=== PATIENT | male | born 1950 | race Caucasian/White ===

== ENCOUNTER → 2016-08-05 | Outpatient (CLI) | payer OTHER ==
[~2016-08-05] MED LIST: ASPCH81X PO; ASPEC81 PO; ATOR-24 PO; ATOR-26 PO; COEN100C7 PO; CYAN100020 PO; FENO54TA3 PO; GLC500 PO; LEVO75TA5 PO; LISI-725 PO; LISI20TA3 PO; METF500T5 PO
[2016-08-05 09:40] LABS: HEMATOCRIT 47.2 % (42-52); MEAN CELL VOLUME 93.7 fL (80-100); MEAN CORPUSCULAR HEMOGLOBIN 32.3 pg (25-34); MEAN CORPUSCULAR HGB CONC 34.5 g/dl (32-36); MEAN PLATELET VOLUME 9.9 fL (7.4-10.4); PLATELET COUNT 277 K/uL (130-400); RED BLOOD COUNT 5.04 M/uL (4.7-6.1); WHITE BLOOD COUNT 9.28 K/uL (4.8-10.8)
[2016-08-05 09:59] LABS: ALT/SGPT 38 U/L (12-78); BLOOD UREA NITROGEN 17 mg/dl (7-18); BUN/CREATININE RATIO 19.4 (10-20); CARBON DIOXIDE 28 mmol/L (21-32); CHLORIDE 104 mmol/L (98-107); CHOLESTEROL 171 mg/dl (0-200); CREATININE 0.86 mg/dl (0.60-1.40); GLUCOSE 108 mg/dl (70-99); POTASSIUM 4.1 mmol/L (3.5-5.1); SODIUM 140 mmol/L (136-145); TRIGLYCERIDES 202 mg/dl (0-150); VERY LOW DENSITY LIPOPROT CALC 40 mg/dl
[2016-08-05 10:00] LABS: CALCIUM 9.4 mg/dl (8.5-10.1)
[2016-08-05 10:07] LABS: ESTIMATED AVERAGE GLUCOSE 128 mg/dl; HA1C FLAG Normal (Normal)
[2016-08-05 10:09] LABS: ALB/GLOB RATIO 0.9 (0.9-2); ALKALINE PHOSPHATASE 47 U/L (45-117); AST/SGOT 26 U/L (15-37); CHOLESTEROL/HDL RATIO 4.1; HDL CHOLESTEROL 42 mg/dl; LDL CHOLESTEROL CALCULATED 89 mg/dl
[2016-08-05 11:27] LABS: LYME DISEASE AB IGG NEG (NEG); LYME DISEASE AB IGM NEG (NEG)
--- NOTE | 2016-08-12 13:45 | CODING QUERY MEDICAL NECESSITY ---
CQSUPPORTING DIAGNOSIS NEEDED A supporting diagnosis is required for the test/procedure performed on this patient in order for us to be reimbursed by the patient's insurance. Please provide a supporting diagnosis for the following test/procedure listed below next to the test name along with your signature. *If there is no additional diagnosis for this patient that would support the following test/procedure please document that below next to the test/procedure. Test(s)/Procedure(s) that require a supporting diagnosis: DOS 08/05/16 VITAMIN B12 Provider Signature: Date: Thank you Mahi Dela Cruz [employer] Once completed, please kindly fax back to [phone] For questions please call [phone]
== END | disposition home or self-care (01) ==
LOC: C.LAB 06:34
PROVIDERS: ATTEND Family Medicine
DX: R73.09 Other abnormal glucose (principal)

== ENCOUNTER → 2016-11-25 | Day surgery (SDC) | payer OTHER ==
[2016-11-18 07:36] VITALS: Ht 170.2 cm; Wt 102.3 kg
[~2016-11-25] VITALS: Ht 170.2 cm; Wt 102.3 kg
[~2016-11-25] MED LIST changes: -ASPEC81 PO; -ATOR-26 PO; -GLC500 PO; +LIDOCAINE HCL 2% 2 ML VIAL (20MG/ML) ONE; -LISI20TA3 PO; +PROPOFOL IV EMULSION 10 MG/ML 20 ML VIAL IV ONE; +SODIUM CHLORIDE 0.9% 500ML 500 ML IV ONE
--- NOTE | 2016-11-25 11:52 | Endo History and Physical ---
History & Physical Date of Service: Nov 25, 2016. Chief Complaint: Rectal Bleeding Referring Physician: Dr Roberts History of Present Illness 66 yo CM who presents for colonoscopy secondary to Rectal bleeding. Past Surgical History Hx Cardiac Surgery: No Hx Internal Defibrillator: No Hx Pacemaker: No Hx Abdominal Surgery: Yes (RICKY) Hx of Implantable Prosthesis: No Hx Post-Op Nausea and Vomiting: No Hx Cancer Surgery: No Hx Thoracic Surgery: No Hx Orthopedic: Yes (RT SHOULDER SX, RT WRIST SX) Hx Urinary Tract Surgery: No Family History None Social History Smoking Status: Former Smoker Hx Substance Use: No Hx Alcohol Use: Yes (6 DRINKS A WEEK (BEER)) Allergies Coded Allergies: No Known Allergies (Verified , 11/18/16) Current Medications Reported Home Medications Medications Dose Route/Sig Max Daily Dose Days Date Category Dose Instructions Coq10 (Coenzyme Q10 (Ubidecarenone)) 100 Mg Cap 1 Cap PO QPM 11/18/16 Reported Vitamin B12 (Cyanocobalamin) 1,000 Mcg Tab 1 Tab PO QPM 11/18/16 Reported Lipitor (Atorvastatin Calcium) 40 Mg Tab 40 Mg PO QAM 11/18/16 Reported Lofibra (Fenofibrate) 54 Mg Tab 1 Tab PO QAM 11/18/16 Reported Zestril (Lisinopril) 20 Mg Tab 20 Mg PO QAM 11/18/16 Reported Levothyroxine Sodium 75 Mcg Tab 1 Tab PO QAM 90 11/18/16 Reported Aspirin Chewable (Aspirin) 81 Mg Chew 81 Mg PO QAM 11/18/16 Reported Glucophage Er (Metformin HCl) 500 Mg Tab 1 Dose PO BID 11/18/16 Reported 2 TABS IN AM 1 TAB IN PM Vital Signs Weight (Kilograms): 102.27 Height (Feet): 5 Height (Inches): 7 Date Time Temp Pulse Resp B/P (MAP) Pulse Ox O2 Delivery O2 Flow Rate FiO2 11/25/16 11:04 36.9 67 20 171/89 (116) 94 Room Air Physical Exam General Appearance: WD/WN, no apparent distress Respiratory/Chest: Auscultation: breath sounds normal Cardiovascular: Heart Auscultation: RRR Abdomen: Bowel Sounds: normal Inspection & Palpation: soft, non-distended, no tenderness, guarding & rebound Assessment and Plan Assessment: 66 yo CM who presents for colonoscopy secondary to Rectal bleeding. Plan: Proceed with colonoscopy.
--- NOTE | 2016-11-25 13:26 | Discharge Instructions ---
Endoscopy Patient Instructions Date / Procedure(s) Performed Nov 25, 2016. Colonoscopy Allergy Information Coded Allergies: No Known Allergies (Verified , 11/18/16) Discharge Date / Findings Nov 25, 2016. Diverticulosis Internal hemorrhoids Incomplete colonoscopy Medication Instructions Stopped Medication(s): ASA, Metformin OK to resume all medications today as prescribed Reported Home Medications Medications Dose Route/Sig Max Daily Dose Days Date Category Dose Instructions Coq10 (Coenzyme Q10 (Ubidecarenone)) 100 Mg Cap 1 Cap PO QPM 11/18/16 Reported Vitamin B12 (Cyanocobalamin) 1,000 Mcg Tab 1 Tab PO QPM 11/18/16 Reported Lipitor (Atorvastatin Calcium) 40 Mg Tab 40 Mg PO QAM 11/18/16 Reported Lofibra (Fenofibrate) 54 Mg Tab 1 Tab PO QAM 11/18/16 Reported Zestril (Lisinopril) 20 Mg Tab 20 Mg PO QAM 11/18/16 Reported Levothyroxine Sodium 75 Mcg Tab 1 Tab PO QAM 90 11/18/16 Reported Aspirin Chewable (Aspirin) 81 Mg Chew 81 Mg PO QAM 11/18/16 Reported Glucophage Er (Metformin HCl) 500 Mg Tab 1 Dose PO BID 11/18/16 Reported 2 TABS IN AM 1 TAB IN PM Provider Instructions Activity Restrictions - No exercising or heavy lifting for 24 hours. - Do not drink alcohol the day of the procedure. - Do not drive a car or operate machinery until the day after the procedure. - Do not make any important decisions or sign important papers in 24 hours after the procedure. Following Day: - Return to full activity which may include returning to work/school. Diet Start your diet with liquids and light foods (jello, soup, juice, toast). Then eat your usual diet if not nauseated. Treatment For Common After Affects For mild abdominal pain, bloating, or excessive gas: - Rest - Eat lightly - Lie on right side Follow-Up Information Follow-up with Dr Roberts as scheduled Anesthesia Information What You Should Know You have had a procedure that required some medicine to reduce anxiety and discomfort. This treatment is called moderate sedation. After receiving the treatment, you may be sleepy, but you will be able to breathe on your own. The effects of the treatment may last for several hours. Follow these instructions along with Activity/Diet recommendations noted above: * Do NOT do anything where dizziness or clumsiness would be dangerous. * Rest quietly at home today, then you can be up and about tomorrow. * Have a responsible person stay with you the rest of today. * You may have had an I.V. today. If so, you may take the dressing off later today. Recommendations Call your doctor if: * Trouble breathing * Continuous vomiting for more than 24 hours * Temperature above 101 degrees * Severe abdominal pain or bloating * Pain not relieved by pain medicine ordered * There is increased drainage or redness from any incision * A large amount of rectal bleeding greater than 2-3 tablespoons. (If you had a polyp/s removed or have hemorrhoids, a small amount of blood - from the rectum is to be expected.) * You have any unanswered questions or concerns. IN THE EVENT OF A SERIOUS EMERGENCY, GO TO THE NEAREST EMERGENCY ROOM Your discharge instructions were prepared by provider Jaime Diaz. Patient Instructions Signature Page Jose Fowler Patient (or Guardian) Signature/Date: I have read and understand the instructions given to me by my caregivers. Caregiver/RN/Doctor Signature/Date: The above-named patient and/or guardian has received patient instructions on this date. + Original Patient Signature Page (only) stays with chart. Please make copy for patient.
[2016-11-25 13:35] VITALS: BP 166/87; PULSE 58; O2SAT 95
--- NOTE | 2016-11-25 14:05 | Anesthesiology Progress Note ---
Anesthesia Post Op Note Date & Time Nov 25, 2016 at 14:04 Vital Signs Vital Signs Past 12 Hours Date Time Temp Pulse Resp B/P (MAP) Pulse Ox O2 Delivery O2 Flow Rate FiO2 11/25/16 13:35 58 20 166/87 (113) 95 Room Air 11/25/16 13:19 61 20 167/91 (116) 95 Room Air 11/25/16 13:05 36.5 67 20 166/82 (110) 95 Room Air 11/25/16 11:04 36.9 67 20 171/89 (116) 94 Room Air Notes Mental Status: alert / awake / arousable, participated in evaluation Pt Amnestic to Procedure: Yes Nausea / Vomiting: adequately controlled Pain: adequately controlled Airway Patency, RR, SpO2: stable & adequate BP & HR: stable & adequate Hydration State: stable & adequate Anesthetic Complications: no major complications apparent
--- NOTE | 2016-11-26 00:14 | GI REPORT ---
Procedure Date: 11/25/2016 11:56 AM Procedure: Colonoscopy Indications: Rectal bleeding Medicines: Monitored Anesthesia Care Complications: No immediate complications. Estimated Blood Loss: Estimated blood loss: none. Procedure: Pre-Anesthesia Assessment: - Prior to the procedure, a History and Physical was performed, and patient medications and allergies were reviewed. The patient's tolerance of previous anesthesia was also reviewed. The risks and benefits of the procedure and the sedation options and risks were discussed with the patient. All questions were answered, and informed consent was obtained. Prior Anticoagulants: The patient has taken aspirin, last dose was 4 days prior to procedure. ASA Grade Assessment: II - A patient with mild systemic disease. After reviewing the risks and benefits, the patient was deemed in satisfactory condition to undergo the procedure. After I obtained informed consent, the scope was passed under direct vision. Throughout the procedure, the patient's blood pressure, pulse, and oxygen saturations were monitored continuously. The Scope was introduced through the anus with the intention of advancing to the ileum. The scope was advanced to the ascending colon before the procedure was aborted. Medications were given. The colonoscopy was performed with moderate difficulty due to restricted mobility of the colon and a tortuous colon. Successful completion of the procedure was aided by changing the patient to a supine position and using manual pressure. The patient tolerated the procedure well. The quality of the bowel preparation was good. The ileocecal valve and the rectum were photographed. Findings: Many small and large-mouthed diverticula were found in the entire colon. Non-bleeding internal hemorrhoids were found during retroflexion. The hemorrhoids were small. Impression: - Diverticulosis in the entire examined colon. - Non-bleeding internal hemorrhoids. - No specimens collected. Recommendation: - Resume previous diet. - Continue present medications. - Perform a CT scan (computed tomography) of abdomen with contrast and pelvis with contrast today. Jaime Diaz, DO 11/25/2016 2:20:46 PM This report has been signed electronically. Note Initiated On: 11/25/2016 11:56 AM I attest to the content of the Intraoperative Record and orders documented therein, exceptions below
== END | disposition home or self-care (01) ==
LOC: C.GI 10:37
PROVIDERS: ATTEND Internal Medicine
DX: K62.5 Hemorrhage of anus and rectum (principal); K57.30 Diverticulosis of large intestine without perforation or abscess without bleeding; K64.8 Other hemorrhoids; Z87.891 Personal history of nicotine dependence; Z79.82 Long term (current) use of aspirin; Z79.84 Long term (current) use of oral hypoglycemic drugs; Z79.899 Other long term (current) drug therapy

== ENCOUNTER → 2016-11-25 | Outpatient (CLI) | payer OTHER ==
[~2016-11-25] MED LIST changes: -LIDOCAINE HCL 2% 2 ML VIAL (20MG/ML) ONE; +OPTIRAY 320 IV PRN; -PROPOFOL IV EMULSION 10 MG/ML 20 ML VIAL IV ONE; -SODIUM CHLORIDE 0.9% 500ML 500 ML IV ONE
[2016-11-25 16:23] LABS: BLOOD UREA NITROGEN 11 mg/dl (7-18); BUN/CREATININE RATIO 11.8 (10-20); CARBON DIOXIDE 29 mmol/L (21-32); CHLORIDE 106 mmol/L (98-107); CREATININE 0.94 mg/dl (0.60-1.40); GLUCOSE 89 mg/dl (70-99); PHOSPHORUS 2.5 mg/dl (2.5-4.9); POTASSIUM 4.1 mmol/L (3.5-5.1); SODIUM 141 mmol/L (136-145)
--- NOTE | 2016-11-25 16:58 | DIAGNOSTIC IMAGING REPORT ---
CT SCAN OF THE ABDOMEN AND PELVIS WITH IV CONTRAST CLINICAL HISTORY: Diverticulosis. Incomplete colonoscopy. COMPARISON STUDY: No priors. TECHNIQUE: Following the IV administration of 91 cc of Optiray 320, CT scan of the abdomen and pelvis is performed from the lung bases to the proximal femora. Images are reviewed in the axial, sagittal, and coronal planes. IV contrast was administered without complication. Automated dose control exposure was utilized. A dose lowering technique was utilized adhering to the principles of ALARA. CT DOSE: 960.43 mGy.cm FINDINGS: Lung bases: The heart is enlarged and without pericardial effusion. There are coronary artery calcifications. The lung bases are clear. A small hiatal hernia is identified. Liver: The contrast-enhanced liver is normal in size, contour, and attenuation. There is no intrahepatic biliary ductal dilatation. The hepatic veins and portal veins are patent. Gallbladder: Surgically absent. Spleen: Normal in size and attenuation. Pancreas: There is moderate atrophy of the pancreas which is grossly unremarkable. Adrenal glands: Unremarkable. Kidneys: The contrast enhanced kidneys demonstrate mild cortical atrophy and are without hydronephrosis. The kidneys enhance symmetrically. Abdominal vasculature: The abdominal aorta is normal in course and caliber noting mild atherosclerotic calcification. Bowel: No bowel obstruction is seen. There is advanced colonic diverticulosis without CT evidence of acute diverticulitis. The appendix is well-visualized and normal. Peritoneum: There is no intraperitoneal free air or abdominal ascites. There is a small fat-containing umbilical hernia. Lymphadenopathy: None. Pelvic viscera: The bladder is decompressed and grossly unremarkable. The prostate gland is mildly enlarged and heterogeneous. Fatty reconversion is seen along the inguinal canal bilaterally. Skeletal structures: The skeletal structures are osteopenic. There is mild lumbosacral spondylosis. No lytic or blastic lesions are seen. IMPRESSION: 1. There are no acute infectious or inflammatory findings in the abdomen or pelvis. 2. Advanced colonic diverticulosis without CT evidence of acute diverticulitis. 3. Although suboptimally assessed by CT there is no evidence of colonic lesion identified. Electronically signed by: Ced Lancaster M.D. 11/25/2016 4:57 PM Dictated Date/Time: 11/25/2016 4:36 PM
== END | disposition home or self-care (01) ==
LOC: C.CTS 14:17
PROVIDERS: ATTEND Internal Medicine
DX: R93.3 Abnormal findings on diagnostic imaging of other parts of digestive tract (principal); K57.92 Diverticulitis of intestine, part unspecified, without perforation or abscess without bleeding

== ENCOUNTER → 2016-12-17 | Outpatient (CLI) | payer OTHER ==
[~2016-12-17] MED LIST changes: -OPTIRAY 320 IV PRN
[2016-12-17 09:57] LABS: ALT/SGPT 24 U/L (12-78); BLOOD UREA NITROGEN 12 mg/dl (7-18); BUN/CREATININE RATIO 14.2 (10-20); CALCIUM 9.4 mg/dl (8.5-10.1); CARBON DIOXIDE 33 mmol/L (21-32); CHLORIDE 105 mmol/L (98-107); CHOLESTEROL < 50 mg/dl (0-200); CREATININE 0.86 mg/dl (0.60-1.40); GLUCOSE 114 mg/dl (70-99); POTASSIUM 4.6 mmol/L (3.5-5.1); SODIUM 140 mmol/L (136-145); TRIGLYCERIDES 169 mg/dl (0-150); URIC ACID 6.1 mg/dl (2.6-7.2); VERY LOW DENSITY LIPOPROT CALC 34 mg/dl
[2016-12-17 09:59] LABS: BASO % 0.3 %; BASO ABS # 0.02 K/uL (0-0.2); COMPLETE YES; EOS % 3.9 %; IG% 0.1 %; LYMPH % 32.3 %; LYMPH ABS # 2.49 K/uL (1.2-3.4); MEAN CELL VOLUME 93.1 fL (80-100); MEAN CORPUSCULAR HEMOGLOBIN 30.6 pg (25-34); MEAN CORPUSCULAR HGB CONC 32.8 g/dl (32-36); MEAN PLATELET VOLUME 10.1 fL (7.4-10.4); MONO % 8.9 %; NEUT % 54.5 %; PLATELET COUNT 267 K/uL (130-400); RED BLOOD COUNT 4.94 M/uL (4.7-6.1); WHITE BLOOD COUNT 7.71 K/uL (4.8-10.8)
[2016-12-17 10:00] LABS: ESTIMATED AVERAGE GLUCOSE 128 mg/dl; HA1C FLAG Normal (Normal)
[2016-12-17 10:06] LABS: ALKALINE PHOSPHATASE 45 U/L (45-117); AST/SGOT 16 U/L (15-37); HDL CHOLESTEROL 45 mg/dl; TOTAL IRON BINDING CAPACITY 339 mcg/dl (250-450)
== END | disposition home or self-care (01) ==
LOC: C.LAB 06:45
PROVIDERS: ATTEND Family Medicine
DX: E55.9 Vitamin D deficiency, unspecified (principal); R73.09 Other abnormal glucose; D51.9 Vitamin B12 deficiency anemia, unspecified; E78.9 Disorder of lipoprotein metabolism, unspecified; R53.83 Other fatigue

== ENCOUNTER → 2017-08-15 | Outpatient (CLI) | payer OTHER ==
[2017-08-15 09:30] LABS: BASO % 0.2 %; BASO ABS # 0.02 K/uL (0-0.2); EOS % 2.6 %; EOS ABS # 0.21 K/uL (0-0.5); HEMATOCRIT 45.5 % (42-52); HEMOGLOBIN 15.7 g/dL (14.0-18.0); IG# 0.01 K/uL (0.00-0.02); LYMPH % 26.8 %; LYMPH ABS # 2.19 K/uL (1.2-3.4); MEAN CELL VOLUME 90.8 fL (80-100); MEAN CORPUSCULAR HEMOGLOBIN 31.3 pg (25-34); MEAN CORPUSCULAR HGB CONC 34.5 g/dl (32-36); MONO % 9.1 %; MONO ABS # 0.74 K/uL (0.11-0.59); NEUT % 61.2 %; PLATELET COUNT 279 K/uL (130-400); RED CELL DISTRIBUTION WIDTH CV 12.9 % (11.5-14.5); RED CELL DISTRIBUTION WIDTH SD 42.5 fL (36.4-46.3); WHITE BLOOD COUNT 8.17 K/uL (4.8-10.8)
[2017-08-15 10:10] LABS: HEMOGLOBIN A1C 6.2 % (4.5-5.6)
[2017-08-15 10:21] LABS: ALT/SGPT 26 U/L (12-78); AST/SGOT 19 U/L (15-37); BLOOD UREA NITROGEN 16 mg/dl (7-18); CALCIUM 9.1 mg/dl (8.5-10.1); CARBON DIOXIDE 31 mmol/L (21-32); CHOLESTEROL 153 mg/dl (0-200); CREATININE 0.92 mg/dl (0.60-1.40); GLUCOSE 110 mg/dl (70-99); POTASSIUM 4.2 mmol/L (3.5-5.1); SODIUM 140 mmol/L (136-145); URIC ACID 5.6 mg/dl (2.6-7.2)
[2017-08-15 10:30] LABS: ALKALINE PHOSPHATASE 45 U/L (45-117); LDL CHOLESTEROL CALCULATED 81 mg/dl; TOTAL PROTEIN 7.8 gm/dl (6.4-8.2); TRANSFERRIN 315 mg/dl (200-360)
== END | disposition home or self-care (01) ==
LOC: C.LAB 07:23
PROVIDERS: ATTEND Family Medicine
DX: E88.81 Metabolic syndrome and other insulin resistance (principal); E55.9 Vitamin D deficiency, unspecified; D51.9 Vitamin B12 deficiency anemia, unspecified; E78.9 Disorder of lipoprotein metabolism, unspecified; R53.83 Other fatigue